=== PATIENT | female | born 1990 | race African-American/Black ===

== ENCOUNTER 2016-05-12 08:31 | Emergency (ER) | payer OTHER ==
[~2016-05-12] VITALS: Ht 157.5 cm; Wt 95.5 kg
[~2016-05-12 08:31] MED LIST: AMBIEN CR 12.12.5 MG PO; AMOXICILLIN 50500 MG PO; ATARAX 25MG25 MG/TAB PO; BACTRIM DS 8001 TAB PO; CEFTIN 250250 MG/TAB PO; CEPHALEXIN500 M1 PO; DESYREL 100MG100 MG PO; DESYREL 50MG50 MG PO; DOXYCYCLINE 10100 MG PO; EPI EZ PEN1 MG/ML IM; EPI-PEN1 MG/ML MR; FAM-PREN FORTE1 CAP PO; FLAGYL500 MG PO; FLEXERIL 1010 MG/TAB PO; FLOVENT DI100 MCG/Ac IH; IMPLANON68 MG ID; IRON TABLETS325 MG PO; KLONOPIN 0.5MG0.5 MG PO; LEXAPRO 10MG10 MG PO; LEXAPRO 5MG5 MG PO; LOESTRIN 1/20 21DAY PO; LORTAB 5/500 501 TAB PO; METRONIDAZOLE500 MG PO; NAPROSYN500 MG PO; NO HOME MEDICATIONS; NORCO 325 MG-51 TAB PO; NORCO 325 MG-7.1 TAB PO; PEPCID 20MG TAB20 MG PO; PERCOCET 325 MG1 TA2 PO; PHENERGAN 25 TA25 MG PO; PHENERGAN25 MG RC; PREDNISONE10 MG PO; PREDNISONE20 MG PO; PRILOSEC 20MG20 MG PO; PROMETHAZINE12.5 M5 PO; PROTONIX 40MG T40 MG PO; ULTRAM 50MG TAB50 MG PO; VENTOLIN0.09 MG IH; VICODIN 5/5001 UDTAB PO; WELLBUTRIN 75MG75 MG PO; WELLBUTRIN SR150 M1 PO; ZITHROMAX Z PA250 MG PO; ZOFRAN 4MG T4 MG/TAB PO; ZOFRAN ODT8 MG PO; ZOLOFT 100MG100 MG PO; ZYPREXA2.5 MG PO
[2016-05-12 08:33] VITALS: BP 122/64; PULSE 103; TEMP 98.5
[2016-05-12] MEDS ORDERED: SEROQUEL 2525 MG/TAB PO (08:36)
[2016-05-12] MEDS ORDERED: CELEXA40 MG PO (08:45)
[2016-05-12] MEDS ORDERED: ZITHROMAX Z PA250 MG PO (09:45)
== END 2016-05-12 10:01 | disposition home or self-care (01) ==
LOC: COL.ER 08:31
DX: J02.0 Streptococcal pharyngitis (principal)
CPT/HCPCS: J8540

== ENCOUNTER 2016-11-04 11:17 | Emergency (ER) | payer SELFPAY ==
[~2016-11-04] VITALS: Ht 157.5 cm; Wt 90.9 kg
[~2016-11-04 11:17] MED LIST changes: +CELEXA40 MG PO; +SEROQUEL 2525 MG/TAB PO
[2016-11-04 11:20] VITALS: BP 132/86; TEMP 99.6
[2016-11-04] MEDS ORDERED: AMITRIPTYLINE H25 M1 PO (11:23)
[2016-11-04] MEDS ORDERED: LATUDA40 MG PO (11:23)
[2016-11-04 12:22] LABS: PH 6 (5-8); SQUAMOUS EPITHELIAL None Seen /hpf; URINE APPEARANCE Clear; URINE BACTERIA None Seen /hpf; URINE BILIRUBIN Negative (NEGATIVE); URINE BLOOD Negative (NEGATIVE); URINE COLOR Yellow; URINE GLUCOSE Negative (NEGATIVE); URINE KETONE Trace (NEGATIVE); URINE RBC 0-2 /hpf; URINE UROBILINOGEN Negative (NEGATIVE); URINE WBC 0-2 /hpf
[2016-11-04 12:33] LABS: BASO # 0.1 (0.0-0.2); BASO % 0.8 % (0.0-2.0); EOS # 0.1 (0.0-0.7); EOS % 1.3 % (0-4.0); GRAN # 5.9 (1.4-6.5); GRAN % 65.7 % (42.2-75.2); LYMPH # 2.4 (1.2-3.4); LYMPH % 26.4 % (20.0-51.0); MEAN CELL VOLUME 84 fl (80.0-100.0); MEAN CORPUSCULAR HGB CONC 34 g/dl (33.0-37.0); MEAN PLATELET VOLUME 9.6 fl (7.4-10.4); MONO # 0.5 (0.1-0.6); MONO % 5.7 % (1.7-9.3); PLATELET COUNT 307 K/mm3 (130-400); RED BLOOD COUNT 4.24 M/mm3 (4.10-5.30); REDCELL DISTRIBUTION WIDTH-CV 12.6 % (11.5-14.5); WHITE BLOOD COUNT 9.1 K/mm3 (4.8-10.8)
[2016-11-04 12:35] LABS: HEMATOCRIT 35.5 % (37.0-47.0); HEMOGLOBIN 11.9 g/dl (12.5-16.0); MEAN CORPUSCULAR HEMOGLOBIN 28 pg (27.0-31.0)
[2016-11-04 12:48] LABS: ALBUMIN 4.7 gm/dL (3.5-5.0); BILIRUBIN,TOTAL 1.1 mg/dL (0.0-1.0); C-REACTIVE PROTEIN 2.1 mg/dL (0.0-0.9); CALCIUM 9.6 mg/dL (8.4-10.2); CREATININE, serum 0.73 mg/dL (0.52-1.25); POTASSIUM 3.4 mmol/L (3.4-5.0); TOTAL PROTEIN 8.7 gm/dL (6.4-8.2)
[2016-11-04 15:25] VITALS: PULSE 117
[2016-11-04 17:04] LABS: CHLAMYDIA/TRACH by PCR Female NOT DETECTED; NEISSERIA GON by PCR Female NOT DETECTED
== END 2016-11-04 15:26 | disposition home or self-care (01) ==
LOC: COL.ER 11:17
PROVIDERS: Emergency Medicine
DX: O26.899 Other specified pregnancy related conditions, unspecified trimester (principal); R10.30 Lower abdominal pain, unspecified; O99.340 Other mental disorders complicating pregnancy, unspecified trimester; F32.9 Major depressive disorder, single episode, unspecified; Z3A.00 Weeks of gestation of pregnancy not specified; Z87.42 Personal history of other diseases of the female genital tract
CPT/HCPCS: J7030

== ENCOUNTER → 2016-11-11 | Outpatient (CLI) | payer SELFPAY ==
[~2016-11-11] MED LIST changes: +AMITRIPTYLINE H25 M1 PO; +LATUDA40 MG PO
== END ==
LOC: COL.RAD 15:00
DX: O26.851 Spotting complicating pregnancy, first trimester (principal); Z3A.01 Less than 8 weeks gestation of pregnancy

== ENCOUNTER → 2016-11-18 | Outpatient (CLI) | payer MEDICAID | LOC: COL.RAD 10:20 | DX: O26.851 Spotting complicating pregnancy, first trimester (principal); Z3A.01 Less than 8 weeks gestation of pregnancy ==

== ENCOUNTER 2016-12-04 19:17 | Emergency (ER) | payer MEDICAID ==
[~2016-12-04] VITALS: Ht 157.5 cm; Wt 90.9 kg
[2016-12-04 19:22] VITALS: BP 111/51; TEMP 99.2
[2016-12-04 20:18] LABS: COLLECTION METHOD CLEAN CATCH
[2016-12-04 20:28] LABS: MUCOUS Present /lpf; PH 7 (5-8); SQUAMOUS EPITHELIAL 0-2 /hpf; URINE APPEARANCE Clear; URINE BACTERIA None Seen /hpf; URINE BILIRUBIN Negative (NEGATIVE); URINE BLOOD 1+ (NEGATIVE); URINE COLOR Yellow; URINE GLUCOSE Negative (NEGATIVE); URINE KETONE Negative (NEGATIVE); URINE LEUKOCYTE ESTERASE Negative (NEGATIVE); URINE PROTEIN(semi-quant) Negative (NEGATIVE); URINE RBC 0-2 /hpf; URINE UROBILINOGEN Negative (NEGATIVE); URINE WBC 0-2 /hpf
[2016-12-04 21:01] LABS: BASO % 0.5 % (0.0-2.0); EOS # 0.1 (0.0-0.7); EOS % 2.2 % (0-4.0); GRAN # 3.7 (1.4-6.5); GRAN % 62.2 % (42.2-75.2); HEMATOCRIT 33.3 % (37.0-47.0); HEMOGLOBIN 11.2 g/dl (12.5-16.0); LYMPH # 1.7 (1.2-3.4); LYMPH % 28.1 % (20.0-51.0); MEAN CELL VOLUME 85 fl (80.0-100.0); MEAN CORPUSCULAR HEMOGLOBIN 29 pg (27.0-31.0); MEAN CORPUSCULAR HGB CONC 34 g/dl (33.0-37.0); MEAN PLATELET VOLUME 9.2 fl (7.4-10.4); MONO # 0.4 (0.1-0.6); MONO % 6.8 % (1.7-9.3); PLATELET COUNT 244 K/mm3 (130-400); RED BLOOD COUNT 3.92 M/mm3 (4.10-5.30); WHITE BLOOD COUNT 5.9 K/mm3 (4.8-10.8)
[2016-12-04 21:22] LABS: ADJUSTED CALCIUM 8.8 mg/dL (8.4-10.2); ALBUMIN 3.9 gm/dL (3.5-5.0); BILIRUBIN,TOTAL 0.4 mg/dL (0.0-1.0); CALCIUM 8.7 mg/dL (8.4-10.2); CREATININE, serum 0.64 mg/dL (0.52-1.25); POTASSIUM 3.4 mmol/L (3.4-5.0); TOTAL PROTEIN 7.7 gm/dL (6.4-8.2)
[2016-12-04] MEDS ORDERED: FLAGYL500 MG PO (22:05)
[2016-12-04 22:24] VITALS: PULSE 105
[2016-12-04 23:38] LABS: CHLAMYDIA/TRACH by PCR Female NOT DETECTED; NEISSERIA GON by PCR Female NOT DETECTED
== END 2016-12-04 22:28 | disposition home or self-care (01) ==
LOC: COL.ER 19:17
PROVIDERS: Emergency Medicine; Nurse Practitioner
DX: O26.891 Other specified pregnancy related conditions, first trimester (principal); N76.0 Acute vaginitis; F31.9 Bipolar disorder, unspecified; J45.909 Unspecified asthma, uncomplicated; F41.9 Anxiety disorder, unspecified; B96.89 Other specified bacterial agents as the cause of diseases classified elsewhere; Z3A.09 9 weeks gestation of pregnancy
CPT/HCPCS: J1200; J2550; J7030

== ENCOUNTER 2017-02-05 14:37 | Emergency (ER) | payer MEDICAID ==
[~2017-02-05] VITALS: Ht 157.5 cm; Wt 86.4 kg
[2017-02-05 14:41] VITALS: TEMP 98.1
[2017-02-05] MEDS ORDERED: AMBIEN 5MG TABLE5 MG PO (14:54)
[2017-02-05] MEDS ORDERED: CELEXA40 MG PO (14:54)
[2017-02-05] MEDS ORDERED: ZOFRAN8 MG PO (14:54)
[2017-02-05 15:56] LABS: COLLECTION METHOD CLEAN CATCH
[2017-02-05 16:03] LABS: AMORPHOUS CRYSTAL Present /uL; MUCOUS Present /lpf; PH 8 (5-8); SQUAMOUS EPITHELIAL 0-2 /hpf; URINE APPEARANCE Cloudy; URINE BACTERIA Rare /hpf; URINE BILIRUBIN Negative (NEGATIVE); URINE BLOOD Negative (NEGATIVE); URINE COLOR Yellow; URINE GLUCOSE Negative (NEGATIVE); URINE KETONE Negative (NEGATIVE); URINE LEUKOCYTE ESTERASE Negative (NEGATIVE); URINE PROTEIN(semi-quant) Negative (NEGATIVE); URINE RBC 0-2 /hpf; URINE UROBILINOGEN Negative (NEGATIVE); URINE WBC None Seen /hpf
[2017-02-05 16:51] VITALS: BP 119/77; PULSE 89
== END 2017-02-05 16:52 | disposition home or self-care (01) ==
LOC: COL.ER 14:37
PROVIDERS: Family Medicine
DX: O9A.212 Injury, poisoning and certain other consequences of external causes complicating pregnancy, second trimester (principal); S20.222A Contusion of left back wall of thorax, initial encounter; Z3A.18 18 weeks gestation of pregnancy; W10.9XXA Fall (on) (from) unspecified stairs and steps, initial encounter

== ENCOUNTER 2017-02-13 20:59 | Emergency (ER) | payer MEDICAID ==
[~2017-02-13] VITALS: Ht 157.5 cm; Wt 90.9 kg
[~2017-02-13 20:59] MED LIST changes: +AMBIEN 5MG TABLE5 MG PO; +ZOFRAN8 MG PO
[2017-02-13 21:02] VITALS: TEMP 98.3
[2017-02-13 21:36] LABS: COLLECTION METHOD CLEAN CATCH
[2017-02-13 21:38] LABS: BASO % 0.4 % (0.0-2.0); EOS # 0.1 (0.0-0.7); EOS % 1.1 % (0-4.0); GRAN # 8.2 (1.4-6.5); GRAN % 72.7 % (42.2-75.2); LYMPH # 2.5 (1.2-3.4); LYMPH % 21.9 % (20.0-51.0); MEAN CELL VOLUME 84 fl (80.0-100.0); MEAN CORPUSCULAR HGB CONC 35 g/dl (33.0-37.0); MEAN PLATELET VOLUME 9.4 fl (7.4-10.4); MONO # 0.4 (0.1-0.6); MONO % 3.5 % (1.7-9.3); PLATELET COUNT 278 K/mm3 (130-400); RED BLOOD COUNT 3.84 M/mm3 (4.10-5.30)
[2017-02-13 21:39] LABS: HEMATOCRIT 32.1 % (37.0-47.0); HEMOGLOBIN 11.1 g/dl (12.5-16.0); MEAN CORPUSCULAR HEMOGLOBIN 29 pg (27.0-31.0)
[2017-02-13 21:43] LABS: MUCOUS Present /lpf; PH 5 (5-8); SQUAMOUS EPITHELIAL 0-2 /hpf; URINE APPEARANCE Hazy; URINE BACTERIA Rare /hpf; URINE BILIRUBIN Negative (NEGATIVE); URINE BLOOD Negative (NEGATIVE); URINE COLOR Yellow; URINE GLUCOSE Negative (NEGATIVE); URINE KETONE 2+ (NEGATIVE); URINE LEUKOCYTE ESTERASE Negative (NEGATIVE); URINE NITRATE Negative (NEGATIVE); URINE PROTEIN(semi-quant) 1+ (NEGATIVE); URINE RBC 0-2 /hpf; URINE UROBILINOGEN Negative (NEGATIVE)
[2017-02-13 21:47] LABS: ALBUMIN 4.1 gm/dL (3.5-5.0); BILIRUBIN,TOTAL 0.4 mg/dL (0.0-1.0); CALCIUM 9.5 mg/dL (8.4-10.2); CREATININE, serum 0.53 mg/dL (0.52-1.25); POTASSIUM 3.4 mmol/L (3.4-5.0); TOTAL PROTEIN 7.7 gm/dL (6.4-8.2)
[2017-02-13 22:58] VITALS: BP 109/77; PULSE 95
== END 2017-02-13 22:58 | disposition home or self-care (01) ==
LOC: COL.ER 20:59
PROVIDERS: Physician Assistant
DX: O21.9 Vomiting of pregnancy, unspecified (principal); O99.342 Other mental disorders complicating pregnancy, second trimester; F31.9 Bipolar disorder, unspecified; F41.9 Anxiety disorder, unspecified; Z3A.19 19 weeks gestation of pregnancy; Z87.42 Personal history of other diseases of the female genital tract
CPT/HCPCS: J2405; J2765; J7030

== ENCOUNTER 2017-04-11 19:35 | Outpatient (CLI) | payer MEDICAID ==
[~2017-04-11] VITALS: Ht 160 cm; Wt 93.6 kg
[2017-04-11 20:30] VITALS: BP 114/70; PULSE 113; TEMP 98
[2017-04-11 21:00] VITALS: BP 102/57; BP 114/70; PULSE 108; PULSE 113; TEMP 98
[2017-04-11] MEDS ORDERED: BENADRYL50 MG PO (21:04)
[2017-04-11 21:19] LABS: COLLECTION METHOD CLEAN CATCH
[2017-04-11 21:26] LABS: MUCOUS Present /lpf; PH 5 (5-8); SQUAMOUS EPITHELIAL 0-2 /hpf; URINE APPEARANCE Hazy; URINE BACTERIA Rare /hpf; URINE BILIRUBIN Negative (NEGATIVE); URINE BLOOD Negative (NEGATIVE); URINE COLOR Yellow; URINE GLUCOSE Negative (NEGATIVE); URINE KETONE Trace (NEGATIVE); URINE LEUKOCYTE ESTERASE Negative (NEGATIVE); URINE NITRATE Negative (NEGATIVE); URINE PROTEIN(semi-quant) 1+ (NEGATIVE); URINE RBC 0-2 /hpf; URINE WBC 0-2 /hpf
[2017-04-11 21:30] VITALS: BP 91/52; PULSE 109
[2017-04-11 22:06] VITALS: BP 102/63; PULSE 110
== END 2017-04-11 22:20 | disposition home or self-care (01) ==
LOC: LDRO 19:35
PROVIDERS: Obstetrics & Gynecology
DX: O62.9 Abnormality of forces of labor, unspecified (principal); Z3A.27 27 weeks gestation of pregnancy

== ENCOUNTER → 2017-04-28 | Outpatient (CLI) | payer MEDICAID ==
[~2017-04-28] MED LIST changes: +BENADRYL50 MG PO
== END ==
LOC: SUN.DIA 13:47
DX: O24.419 Gestational diabetes mellitus in pregnancy, unspecified control (principal); Z3A.30 30 weeks gestation of pregnancy; Z71.3 Dietary counseling and surveillance
CPT/HCPCS: G0108

== ENCOUNTER → 2017-05-06 | Outpatient (CLI) | payer MEDICAID | LOC: SUN.DIA 15:33 | DX: O24.419 Gestational diabetes mellitus in pregnancy, unspecified control (principal); Z3A.31 31 weeks gestation of pregnancy; Z71.3 Dietary counseling and surveillance | CPT/HCPCS: G0108 ==

== ENCOUNTER 2017-05-13 15:42 | Emergency (ER) | payer MEDICAID ==
[~2017-05-13] VITALS: Ht 157.5 cm; Wt 98.9 kg
[2017-05-13] MEDS ORDERED: NATURAL IRON65 MG PO (15:45)
[2017-05-13 15:48] VITALS: BP 121/64; TEMP 97.7
[2017-05-13 16:11] LABS: BASO % 0.2 % (0.0-2.0); EOS # 0.1 (0.0-0.7); EOS % 1.7 % (0-4.0); GRAN # 5.7 (1.4-6.5); GRAN % 67.5 % (42.2-75.2); LYMPH # 2.1 (1.2-3.4); LYMPH % 24.9 % (20.0-51.0); MEAN CELL VOLUME 82 fl (80.0-100.0); MEAN CORPUSCULAR HGB CONC 33 g/dl (33.0-37.0); MEAN PLATELET VOLUME 9.5 fl (7.4-10.4); MONO # 0.5 (0.1-0.6); MONO % 5.5 % (1.7-9.3); PLATELET COUNT 251 K/mm3 (130-400); REDCELL DISTRIBUTION WIDTH-CV 13.6 % (11.5-14.5)
[2017-05-13 16:13] LABS: HEMATOCRIT 28.8 % (37.0-47.0); HEMOGLOBIN 9.5 g/dl (12.5-16.0); MEAN CORPUSCULAR HEMOGLOBIN 27 pg (27.0-31.0)
[2017-05-13 16:40] LABS: ALANINE AMINOTRANSFERASE 24 U/L (9-52); ALBUMIN 3.3 gm/dL (3.5-5.0); ALKALINE PHOSPHATASE 115 U/L (50-136); ANION GAP 12 mmol/L (7-16); AST,SGOT 18 U/L (15-37); BILIRUBIN,TOTAL < 0.1 mg/dL (0.0-1.0); BLOOD UREA NITROGEN 8 mg/dL (7-17); CALCIUM 9.3 mg/dL (8.4-10.2); CARBON DIOXIDE 20 mmol/L (22-30); CHLORIDE 105 mmol/L (98-107); CREATININE, serum 0.51 mg/dL (0.52-1.25); GLUCOSE 98 mg/dL (74-106); POTASSIUM 3.8 mmol/L (3.4-5.0); SODIUM 138 mmol/L (137-145); TOTAL PROTEIN 7.4 gm/dL (6.4-8.2)
[2017-05-13 17:11] LABS: COLLECTION METHOD CLEAN CATCH
[2017-05-13 17:21] LABS: MUCOUS Present /lpf; PH 6 (5-8); URINE APPEARANCE Clear; URINE BACTERIA Rare /hpf; URINE BILIRUBIN Negative (NEGATIVE); URINE BLOOD Negative (NEGATIVE); URINE COLOR Yellow; URINE GLUCOSE Negative (NEGATIVE); URINE KETONE Negative (NEGATIVE); URINE LEUKOCYTE ESTERASE Negative (NEGATIVE); URINE NITRATE Negative (NEGATIVE); URINE PROTEIN(semi-quant) 1+ (NEGATIVE); URINE RBC 0-2 /hpf; URINE UROBILINOGEN Negative (NEGATIVE)
[2017-05-13 17:36] VITALS: PULSE 90
== END 2017-05-13 17:36 | disposition home or self-care (01) ==
LOC: COL.ER 15:42
PROVIDERS: Physician Assistant
DX: O99.89 Other specified diseases and conditions complicating pregnancy, childbirth and the puerperium (principal); R55 Syncope and collapse; O99.013 Anemia complicating pregnancy, third trimester; O99.513 Diseases of the respiratory system complicating pregnancy, third trimester; J45.909 Unspecified asthma, uncomplicated; Z3A.32 32 weeks gestation of pregnancy

== ENCOUNTER → 2017-05-14 | Outpatient (CLI) | payer MEDICAID ==
[~2017-05-14] MED LIST changes: +LEVEMIR SQ; +NATURAL IRON65 MG PO
== END ==
LOC: SUN.DIA 10:16
DX: O24.419 Gestational diabetes mellitus in pregnancy, unspecified control (principal); Z3A.32 32 weeks gestation of pregnancy; Z71.3 Dietary counseling and surveillance
CPT/HCPCS: G0108

== ENCOUNTER 2017-05-18 20:43 | Outpatient (CLI) | payer MEDICAID ==
[~2017-05-18] VITALS: Ht 157.5 cm; Wt 99.1 kg
[~2017-05-18 20:43] MED LIST changes: -LEVEMIR SQ
[2017-05-18 21:27] VITALS: BP 118/70; PULSE 121; TEMP 98.3
[2017-05-18 21:30] VITALS: BP 117/71; PULSE 91
[2017-05-18] MEDS ORDERED: LEVEMIR SQ (22:23)
== END 2017-05-18 22:30 | disposition home or self-care (01) ==
LOC: LDRO 20:43
DX: O62.9 Abnormality of forces of labor, unspecified (principal); Z3A.32 32 weeks gestation of pregnancy

== ENCOUNTER → 2017-05-28 | Outpatient (CLI) | payer MEDICAID ==
[~2017-05-28] MED LIST changes: +LEVEMIR SQ
== END ==
LOC: SUN.DIA 14:26
DX: O24.419 Gestational diabetes mellitus in pregnancy, unspecified control (principal); Z3A.34 34 weeks gestation of pregnancy; Z71.3 Dietary counseling and surveillance
CPT/HCPCS: G0108

== ENCOUNTER 2017-05-31 21:05 | Emergency (ER) | payer MEDICAID ==
[~2017-05-31] VITALS: Ht 157.5 cm; Wt 100.0 kg
[2017-05-31 21:08] VITALS: TEMP 97.7
[2017-05-31 21:15] VITALS: BP 127/66
[2017-05-31 22:01] LABS: COLLECTION METHOD CLEAN CATCH
[2017-05-31 22:06] LABS: BASO % 0.4 % (0.0-2.0); EOS # 0.1 (0.0-0.7); EOS % 1.8 % (0-4.0); GRAN # 5.1 (1.4-6.5); GRAN % 64.1 % (42.2-75.2); LYMPH # 2.2 (1.2-3.4); LYMPH % 27.8 % (20.0-51.0); MEAN CELL VOLUME 78 fl (80.0-100.0); MEAN CORPUSCULAR HGB CONC 34 g/dl (33.0-37.0); MEAN PLATELET VOLUME 9.7 fl (7.4-10.4); MONO # 0.4 (0.1-0.6); MONO % 5.6 % (1.7-9.3); PLATELET COUNT 257 K/mm3 (130-400); REDCELL DISTRIBUTION WIDTH-CV 13.4 % (11.5-14.5)
[2017-05-31 22:08] LABS: HEMOGLOBIN 9.5 g/dl (12.5-16.0); MEAN CORPUSCULAR HEMOGLOBIN 26 pg (27.0-31.0); MUCOUS Present /lpf; PH 7 (5-8); SQUAMOUS EPITHELIAL 0-2 /hpf; URINE APPEARANCE Clear; URINE BACTERIA Rare /hpf; URINE BILIRUBIN Negative (NEGATIVE); URINE BLOOD Negative (NEGATIVE); URINE COLOR Yellow; URINE GLUCOSE Negative (NEGATIVE); URINE KETONE Negative (NEGATIVE); URINE LEUKOCYTE ESTERASE Negative (NEGATIVE); URINE NITRATE Negative (NEGATIVE); URINE PROTEIN(semi-quant) Negative (NEGATIVE); URINE RBC 0-2 /hpf
[2017-05-31 22:17] LABS: ALBUMIN 3.3 gm/dL (3.5-5.0); BILIRUBIN,TOTAL 0.3 mg/dL (0.0-1.0); C-REACTIVE PROTEIN 1.6 mg/dL (0.0-0.9); CALCIUM 8.7 mg/dL (8.4-10.2); CREATININE, serum 0.5 mg/dL (0.52-1.25); POTASSIUM 3.5 mmol/L (3.4-5.0); TOTAL PROTEIN 7.2 gm/dL (6.4-8.2)
[2017-05-31 23:33] VITALS: PULSE 102
== END 2017-05-31 23:32 | disposition home or self-care (01) ==
LOC: COL.ER 21:05
PROVIDERS: Emergency Medicine
DX: O26.893 Other specified pregnancy related conditions, third trimester (principal); O24.419 Gestational diabetes mellitus in pregnancy, unspecified control; R10.11 Right upper quadrant pain; J45.909 Unspecified asthma, uncomplicated; Z3A.34 34 weeks gestation of pregnancy; Z98.890 Other specified postprocedural states; Z79.4 Long term (current) use of insulin
CPT/HCPCS: J2765; J3010; J7050

== ENCOUNTER → 2017-06-10 | Outpatient (CLI) | payer MEDICAID ==
[~2017-06-10] MED LIST changes: +AMBIEN 10MG10 MG PO; +LEVEMIR100 U/ML SQ
== END ==
LOC: SUN.DIA 11:42
DX: O24.419 Gestational diabetes mellitus in pregnancy, unspecified control (principal); Z3A.36 36 weeks gestation of pregnancy; Z71.3 Dietary counseling and surveillance
CPT/HCPCS: G0108

== ENCOUNTER 2017-06-11 13:40 | Outpatient (CLI) | payer MEDICAID ==
[~2017-06-11] VITALS: Ht 157.5 cm; Wt 100.0 kg
[~2017-06-11 13:40] MED LIST changes: -AMBIEN 10MG10 MG PO; -LEVEMIR100 U/ML SQ
[2017-06-11 13:50] VITALS: BP 125/70; PULSE 116; TEMP 98.1
[2017-06-11] MEDS ORDERED: CELEXA40 MG PO (13:57)
[2017-06-11] MEDS ORDERED: AMBIEN 10MG10 MG PO (13:58)
[2017-06-11] MEDS ORDERED: LEVEMIR100 U/ML SQ (14:00)
[2017-06-11 14:08] VITALS: BP 125/70; PULSE 116; TEMP 98.1
== END 2017-06-11 14:15 | disposition home or self-care (01) ==
LOC: LDRO 13:40
DX: O36.8130 Decreased fetal movements, third trimester, not applicable or unspecified (principal); Z3A.35 35 weeks gestation of pregnancy

== ENCOUNTER → 2017-06-15 | Outpatient (CLI) | payer MEDICAID ==
[~2017-06-15] VITALS: Ht 160 cm; Wt 99.5 kg
[~2017-06-15] MED LIST changes: +AMBIEN 10MG10 MG PO; +LEVEMIR100 U/ML SQ
[2017-06-15 18:34] VITALS: BP 120/67; PULSE 101; TEMP 98.4
[2017-06-15 19:00] VITALS: BP 121/64; PULSE 95
[2017-06-15 19:30] VITALS: BP 118/65; PULSE 93
[2017-06-15 21:20] VITALS: BP 112/80; PULSE 117; TEMP 98.8
== END ==
LOC: LDRO 18:06
DX: O99.89 Other specified diseases and conditions complicating pregnancy, childbirth and the puerperium (principal); M79.662 Pain in left lower leg; Z3A.36 36 weeks gestation of pregnancy

== ENCOUNTER 2017-06-22 21:11 | Outpatient (CLI) | payer MEDICAID ==
[~2017-06-22] VITALS: Ht 157.5 cm; Wt 99.1 kg
[2017-06-22 21:18] VITALS: BP 118/70; PULSE 96; TEMP 98.2
[2017-06-22] MEDS ORDERED: CALCIUM CARBON650 M2 PO (21:26)
[2017-06-22 22:54] VITALS: BP 111/62; PULSE 109
== END 2017-06-22 23:00 | disposition home or self-care (01) ==
LOC: LDRO 21:11
DX: O62.9 Abnormality of forces of labor, unspecified (principal); Z3A.37 37 weeks gestation of pregnancy

== ENCOUNTER 2017-07-04 06:39 | Inpatient (IN) | payer MEDICAID ==
[~2017-07-04] VITALS: Ht 157.5 cm; Wt 102.3 kg
[2017-07-04] VITALS (49 sets, daily range): BP systolic 100–139; BP diastolic 49–93; PULSE 70–120; TEMP 97.8–98.1
[~2017-07-04 06:39] MED LIST changes: -MOTRIN 800800 MG/TAB PO
[2017-07-04 07:57] LABS: BASO % 0.4 % (0.0-2.0); EOS # 0.1 (0.0-0.7); EOS % 1.2 % (0-4.0); GRAN % 63.9 % (42.2-75.2); LYMPH # 2.7 (1.2-3.4); LYMPH % 28.2 % (20.0-51.0); MEAN CELL VOLUME 75 fl (80.0-100.0); MEAN CORPUSCULAR HGB CONC 32 g/dl (33.0-37.0); MEAN PLATELET VOLUME 10.4 fl (7.4-10.4); MONO # 0.6 (0.1-0.6); MONO % 5.9 % (1.7-9.3); PLATELET COUNT 303 K/mm3 (130-400); RED BLOOD COUNT 4.06 M/mm3 (4.10-5.30)
[2017-07-04 07:58] LABS: HEMATOCRIT 30.6 % (37.0-47.0); HEMOGLOBIN 9.8 g/dl (12.5-16.0); MEAN CORPUSCULAR HEMOGLOBIN 24 pg (27.0-31.0)
[2017-07-05 07:30] VITALS: BP 111/68; PULSE 68; TEMP 97.7
[2017-07-05] MEDS ORDERED: PERCOCET 325 MG1 TA2 PO (08:43)
[2017-07-05] MEDS ORDERED: MOTRIN 800800 MG/TAB PO (08:43)
[2017-07-05 12:30] VITALS: BP 129/78; PULSE 67; TEMP 97.6
[2017-07-05 16:50] VITALS: BP 123/66; PULSE 97; TEMP 97.3
[2017-07-05 19:50] VITALS: BP 126/72; PULSE 84; TEMP 97.8
[2017-07-06 08:00] VITALS: BP 120/68; PULSE 78; TEMP 97.9
[2017-07-06] MEDS ORDERED: PERCOCET 325 MG1 TA2 PO (11:08)
[2017-07-06 19:50] VITALS: BP 133/79; PULSE 94; TEMP 98.2
[2017-07-07 08:15] VITALS: BP 144/80; PULSE 93; TEMP 98.5
[2017-07-07 16:10] VITALS: BP 144/83; PULSE 87; TEMP 97.9
[2017-07-07 18:15] VITALS: BP 140/90; PULSE 83
[2017-07-07 19:45] VITALS: BP 132/77; PULSE 88; TEMP 98.2
[2017-07-08 07:39] VITALS: BP 132/84; PULSE 86; TEMP 98.1
[2017-07-08 16:27] VITALS: BP 114/56; PULSE 76; TEMP 98.1
[2017-07-08] MEDS ORDERED: DULCOLAX STOOL100 MG PO (18:45)
== END 2017-07-08 16:32 | disposition home or self-care (01) | DRG 766 ==
LOC: LDR 06:39 → OB 07:00
PROVIDERS: Obstetrics & Gynecology
PROC: 10D00Z1 Extraction of Products of Conception, Low, Open Approach (ICD-10-PCS; principal; 2017-07-04)
PROC: 3E033VJ Introduction of Other Hormone into Peripheral Vein, Percutaneous Approach (ICD-10-PCS; 2017-07-04)
PROC: 10907ZC Drainage of Amniotic Fluid, Therapeutic from Products of Conception, Via Natural or Artificial Opening (ICD-10-PCS; 2017-07-04)
DX: O76 Abnormality in fetal heart rate and rhythm complicating labor and delivery (principal); Z3A.39 39 weeks gestation of pregnancy; Z37.0 Single live birth; O24.424 Gestational diabetes mellitus in childbirth, insulin controlled; O99.02 Anemia complicating childbirth; F31.9 Bipolar disorder, unspecified; O99.344 Other mental disorders complicating childbirth
CPT/HCPCS: J0690; J1170; J1200; J1885; J2270; J2370; J2405; J2590; J2704; J2795; J3010; J7120

== ENCOUNTER → 2017-07-04 | Outpatient (CLI) | payer MEDICAID ==
[~2017-07-04] MED LIST changes: +CALCIUM CARBON650 M2 PO; +MOTRIN 800800 MG/TAB PO
== END ==
LOC: LDRO 06:55
DX: Z01.89 Encounter for other specified special examinations (principal)

== ENCOUNTER 2017-07-08 17:50 | Emergency (ER) | payer MEDICAID ==
[~2017-07-08] VITALS: Ht 157.5 cm; Wt 101.4 kg
[~2017-07-08 17:50] MED LIST changes: +MOTRIN 800800 MG/TAB PO
[2017-07-08 17:54] VITALS: TEMP 97.5
[2017-07-08 18:22] LABS: BASO % 0.3 % (0.0-2.0); EOS # 0.4 (0.0-0.7); EOS % 5.5 % (0-4.0); GRAN # 3.6 (1.4-6.5); GRAN % 56.1 % (42.2-75.2); LYMPH # 2.1 (1.2-3.4); LYMPH % 32.6 % (20.0-51.0); MEAN CELL VOLUME 76 fl (80.0-100.0); MEAN CORPUSCULAR HGB CONC 32 g/dl (33.0-37.0); MEAN PLATELET VOLUME 9.6 fl (7.4-10.4); MONO # 0.3 (0.1-0.6); MONO % 5.3 % (1.7-9.3); PLATELET COUNT 287 K/mm3 (130-400); RED BLOOD COUNT 3.17 M/mm3 (4.10-5.30); REDCELL DISTRIBUTION WIDTH-CV 14.6 % (11.5-14.5)
[2017-07-08 18:23] LABS: HEMATOCRIT 24.1 % (37.0-47.0); HEMOGLOBIN 7.7 g/dl (12.5-16.0); MEAN CORPUSCULAR HEMOGLOBIN 24 pg (27.0-31.0)
[2017-07-08 18:33] LABS: INR 0.9 (0.8-3.0); PROTHROMBIN TIME 10.3 SECONDS (9.7-12.8)
[2017-07-08 18:39] LABS: ALANINE AMINOTRANSFERASE 42 U/L (9-52); ALKALINE PHOSPHATASE 126 U/L (50-136); ANION GAP 10 mmol/L (7-16); AST,SGOT 41 U/L (15-37); BILIRUBIN,TOTAL 0.4 mg/dL (0.0-1.0); BLOOD UREA NITROGEN 10 mg/dL (7-17); CALCIUM 8.6 mg/dL (8.4-10.2); CARBON DIOXIDE 23 mmol/L (22-30); CHLORIDE 104 mmol/L (98-107); GLUCOSE 72 mg/dL (74-106); POTASSIUM 3.8 mmol/L (3.4-5.0); SODIUM 137 mmol/L (137-145); TOTAL PROTEIN 6.6 gm/dL (6.4-8.2)
[2017-07-08] MEDS ORDERED: DULCOLAX STOOL100 MG PO (18:45)
[2017-07-08 18:50] LABS: TROPONIN-I < 0.012 ng/mL (0.000-0.034)
[2017-07-08 20:00] VITALS: BP 147/95; PULSE 86
== END 2017-07-08 20:26 | disposition home or self-care (01) ==
LOC: COL.ER 17:50
PROVIDERS: Emergency Medicine
DX: R06.00 Dyspnea, unspecified (principal); Z98.890 Other specified postprocedural states
CPT/HCPCS: Q9967

== ENCOUNTER 2018-02-21 11:48 | Emergency (ER) | payer MEDICAID ==
[~2018-02-21] VITALS: Ht 157.5 cm; Wt 97.7 kg
[~2018-02-21 11:48] MED LIST changes: +DULCOLAX STOOL100 MG PO
[2018-02-21 12:05] VITALS: BP 130/82; TEMP 98.6
[2018-02-21 12:09] LABS: COLLECTION METHOD CLEAN CATCH
[2018-02-21 12:19] LABS: MUCOUS Present /lpf; PH 5 (5-8); URINE APPEARANCE Hazy; URINE BACTERIA Rare /hpf; URINE BILIRUBIN Negative (NEGATIVE); URINE BLOOD Negative (NEGATIVE); URINE COLOR Yellow; URINE GLUCOSE Negative (NEGATIVE); URINE KETONE Negative (NEGATIVE); URINE LEUKOCYTE ESTERASE Negative (NEGATIVE); URINE NITRATE Negative (NEGATIVE); URINE PROTEIN(semi-quant) Negative (NEGATIVE); URINE RBC 0-2 /hpf; URINE UROBILINOGEN Negative (NEGATIVE)
[2018-02-21 13:02] LABS: BASO % 0.3 % (0.0-2.0); EOS # 0.2 (0.0-0.7); EOS % 2.1 % (0-4.0); GRAN # 6.2 (1.4-6.5); GRAN % 78.2 % (42.2-75.2); HEMOGLOBIN 11.8 g/dl (12.5-16.0); LYMPH # 1.2 (1.2-3.4); LYMPH % 14.8 % (20.0-51.0); MEAN CELL VOLUME 83 fl (80.0-100.0); MEAN CORPUSCULAR HEMOGLOBIN 27 pg (27.0-31.0); MEAN CORPUSCULAR HGB CONC 32 g/dl (33.0-37.0); MEAN PLATELET VOLUME 9.9 fl (7.4-10.4); MONO # 0.3 (0.1-0.6); MONO % 4.3 % (1.7-9.3); PLATELET COUNT 321 K/mm3 (130-400); RED BLOOD COUNT 4.39 M/mm3 (4.10-5.30)
[2018-02-21 13:06] LABS: HEMATOCRIT 36.6 % (37.0-47.0)
[2018-02-21 13:07] LABS: ALBUMIN 4.2 gm/dL (3.5-5.0); BILIRUBIN,TOTAL 0.5 mg/dL (0.0-1.0); CALCIUM 8.8 mg/dL (8.4-10.2); CREATININE, serum 0.77 mg/dL (0.52-1.25); TOTAL PROTEIN 8.1 gm/dL (6.4-8.2)
[2018-02-21] MEDS ORDERED: PHENERGAN 25 TA25 MG PO (14:49)
[2018-02-21 14:59] VITALS: PULSE 102
== END 2018-02-21 15:01 | disposition home or self-care (01) ==
LOC: COL.ER 11:48
PROVIDERS: Emergency Medicine
DX: R11.2 Nausea with vomiting, unspecified (principal); R10.9 Unspecified abdominal pain; F31.9 Bipolar disorder, unspecified; Z98.890 Other specified postprocedural states
CPT/HCPCS: J2270; J2405; J2550; J7030; Q9967

== ENCOUNTER 2018-03-23 00:12 | Emergency (ER) | payer MEDICAID ==
[~2018-03-23] VITALS: Ht 157.5 cm; Wt 95.5 kg
[2018-03-23 00:28] VITALS: TEMP 98.3
[2018-03-23 00:41] LABS: BASO # 0.1 (0.0-0.2); BASO % 0.6 % (0.0-2.0); EOS # 0.2 (0.0-0.7); EOS % 1.8 % (0-4.0); GRAN # 4.5 (1.4-6.5); GRAN % 54.8 % (42.2-75.2); HEMOGLOBIN 11.4 g/dl (12.5-16.0); LYMPH # 3.1 (1.2-3.4); LYMPH % 37.3 % (20.0-51.0); MEAN CELL VOLUME 82 fl (80.0-100.0); MEAN CORPUSCULAR HEMOGLOBIN 27 pg (27.0-31.0); MEAN CORPUSCULAR HGB CONC 33 g/dl (33.0-37.0); MEAN PLATELET VOLUME 9.7 fl (7.4-10.4); MONO # 0.4 (0.1-0.6); MONO % 5.3 % (1.7-9.3); PLATELET COUNT 316 K/mm3 (130-400); RED BLOOD COUNT 4.26 M/mm3 (4.10-5.30)
[2018-03-23 00:47] LABS: PROTHROMBIN TIME 11.4 SECONDS (9.7-12.8)
[2018-03-23 00:52] LABS: ALANINE AMINOTRANSFERASE 15 U/L (9-52); ALKALINE PHOSPHATASE 76 U/L (50-136); ANION GAP 9 mmol/L (7-16); AST,SGOT 19 U/L (15-37); BILIRUBIN,TOTAL 0.3 mg/dL (0.0-1.0); BLOOD UREA NITROGEN 11 mg/dL (7-17); CALCIUM 9.2 mg/dL (8.4-10.2); CARBON DIOXIDE 25 mmol/L (22-30); CHLORIDE 104 mmol/L (98-107); CREATININE, serum 0.79 mg/dL (0.52-1.25); GLUCOSE 102 mg/dL (74-106); POTASSIUM 3.3 mmol/L (3.4-5.0); SODIUM 139 mmol/L (137-145); TOTAL PROTEIN 7.8 gm/dL (6.4-8.2)
[2018-03-23 00:56] LABS: HEMATOCRIT 34.9 % (37.0-47.0)
[2018-03-23 01:03] LABS: TROPONIN-I < 0.012 ng/mL (0.000-0.035)
[2018-03-23 04:16] VITALS: BP 120/63; PULSE 99
== END 2018-03-23 04:24 | disposition home or self-care (01) ==
LOC: COL.ER 00:12
PROVIDERS: Emergency Medicine
DX: F41.9 Anxiety disorder, unspecified (principal); I10 Essential (primary) hypertension; K21.9 Gastro-esophageal reflux disease without esophagitis; J45.909 Unspecified asthma, uncomplicated; G47.00 Insomnia, unspecified; Z79.1 Long term (current) use of non-steroidal anti-inflammatories (NSAID); Z79.899 Other long term (current) drug therapy
CPT/HCPCS: J2060; J7030; Q9967

== ENCOUNTER 2018-05-18 17:16 | Emergency (ER) | payer MEDICAID ==
[~2018-05-18] VITALS: Ht 157.5 cm; Wt 97.1 kg
[2018-05-18 17:37] VITALS: TEMP 97.2
[2018-05-18 18:06] LABS: BASO # 0.1 (0.0-0.2); BASO % 0.7 % (0.0-2.0); EOS # 0.2 (0.0-0.7); GRAN # 6.4 (1.4-6.5); GRAN % 69.8 % (42.2-75.2); HEMATOCRIT 37.1 % (37.0-47.0); HEMOGLOBIN 12.1 g/dl (12.5-16.0); LYMPH # 2.1 (1.2-3.4); LYMPH % 23.1 % (20.0-51.0); MEAN CELL VOLUME 83 fl (80.0-100.0); MEAN CORPUSCULAR HEMOGLOBIN 27 pg (27.0-31.0); MEAN CORPUSCULAR HGB CONC 33 g/dl (33.0-37.0); MEAN PLATELET VOLUME 9.9 fl (7.4-10.4); MONO # 0.4 (0.1-0.6); MONO % 4.2 % (1.7-9.3); PLATELET COUNT 309 K/mm3 (130-400); RED BLOOD COUNT 4.46 M/mm3 (4.10-5.30); REDCELL DISTRIBUTION WIDTH-CV 13.8 % (11.5-14.5)
[2018-05-18] MEDS ORDERED: MINIPRESS 5M5 MG/CAP PO (18:19)
[2018-05-18] MEDS ORDERED: AMBIEN 10MG10 MG PO (18:19)
[2018-05-18] MEDS ORDERED: SPRINTEC 35 MCG1 TAB PO (18:19)
[2018-05-18 18:20] LABS: ALANINE AMINOTRANSFERASE < 6 U/L (9-52); ALBUMIN 4.5 gm/dL (3.5-5.0); ALKALINE PHOSPHATASE 76 U/L (50-136); ANION GAP 9 mmol/L (7-16); AST,SGOT 23 U/L (15-37); BILIRUBIN,TOTAL 0.4 mg/dL (0.0-1.0); BLOOD UREA NITROGEN 12 mg/dL (7-17); C-REACTIVE PROTEIN 1.7 mg/dL (0.0-0.9); CALCIUM 9.8 mg/dL (8.4-10.2); CARBON DIOXIDE 26 mmol/L (22-30); CHLORIDE 104 mmol/L (98-107); CREATININE, serum 1.08 (0.52-1.25); GLUCOSE 97 mg/dL (74-106); LIPASE 97 U/L (23-300); POTASSIUM 4.1 mmol/L (3.4-5.0); SODIUM 138 mmol/L (137-145); TOTAL PROTEIN 8.8 gm/dL (6.4-8.2)
[2018-05-18] MEDS ORDERED: ADIPEX-P37.5 MG PO (18:20)
[2018-05-18 18:29] LABS: COLLECTION METHOD CLEAN CATCH
[2018-05-18 18:35] LABS: MUCOUS Present /lpf; PH 5 (5-8); SQUAMOUS EPITHELIAL 0-2 /hpf; URINE APPEARANCE Clear; URINE BACTERIA None Seen /hpf; URINE BILIRUBIN Negative (NEGATIVE); URINE BLOOD Negative (NEGATIVE); URINE COLOR Yellow; URINE GLUCOSE Negative (NEGATIVE); URINE KETONE Negative (NEGATIVE); URINE LEUKOCYTE ESTERASE Negative (NEGATIVE); URINE NITRATE Negative (NEGATIVE); URINE PROTEIN(semi-quant) Negative (NEGATIVE); URINE RBC 0-2 /hpf; URINE UROBILINOGEN Negative (NEGATIVE)
[2018-05-18 21:26] VITALS: BP 128/83; PULSE 85
== END 2018-05-18 21:32 | disposition home or self-care (01) ==
LOC: COL.ER 17:16
PROVIDERS: Nurse Practitioner
DX: R10.2 Pelvic and perineal pain (principal); F31.9 Bipolar disorder, unspecified; F41.9 Anxiety disorder, unspecified; J45.909 Unspecified asthma, uncomplicated; Z87.42 Personal history of other diseases of the female genital tract
CPT/HCPCS: J1170; J1885; J2405; J2550; J7030

== ENCOUNTER 2018-09-11 13:42 | Emergency (ER) | payer MEDICAID ==
[~2018-09-11] VITALS: Ht 157.5 cm; Wt 90.0 kg
[~2018-09-11 13:42] MED LIST changes: +ADIPEX-P37.5 MG PO; +MINIPRESS 5M5 MG/CAP PO; +SPRINTEC 35 MCG1 TAB PO
[2018-09-11 15:02] VITALS: BP 129/78; PULSE 94; TEMP 98.4
== END 2018-09-11 15:07 | disposition home or self-care (01) ==
LOC: COL.ER 13:42
DX: S63.91XA Sprain of unspecified part of right wrist and hand, initial encounter (principal); S63.501A Unspecified sprain of right wrist, initial encounter; Z88.0 Allergy status to penicillin; Z88.1 Allergy status to other antibiotic agents; W10.9XXA Fall (on) (from) unspecified stairs and steps, initial encounter

== ENCOUNTER 2018-10-27 20:09 | Emergency (ER) | payer MEDICAID ==
[~2018-10-27] VITALS: Ht 157.5 cm; Wt 86.4 kg
[2018-10-27 20:14] VITALS: TEMP 98.1
[2018-10-27] MEDS ORDERED: PREDNISONE20 MG PO (22:10)
[2018-10-27 22:17] VITALS: BP 124/84; PULSE 84
== END 2018-10-27 22:24 | disposition home or self-care (01) ==
LOC: COL.ER 20:09
DX: T78.2XXA Anaphylactic shock, unspecified, initial encounter (principal); J45.909 Unspecified asthma, uncomplicated; F41.9 Anxiety disorder, unspecified; F31.9 Bipolar disorder, unspecified
CPT/HCPCS: J0171; J1170; J1200; J2930

== ENCOUNTER 2018-12-17 18:38 | Emergency (ER) | payer MEDICAID ==
[~2018-12-17] VITALS: Ht 157.5 cm; Wt 86.4 kg
[2018-12-17] MEDS ORDERED: DOXYCYCLINE 10100 MG PO (20:19)
[2018-12-17 20:21] VITALS: BP 116/86; PULSE 89; TEMP 98.4
== END 2018-12-17 20:25 | disposition home or self-care (01) ==
LOC: COL.ER 18:38
DX: L02.425 Furuncle of right lower limb (principal); T50.905A Adverse effect of unspecified drugs, medicaments and biological substances, initial encounter
CPT/HCPCS: J7512

== ENCOUNTER 2019-02-19 18:24 | Emergency (ER) | payer MEDICAID ==
[~2019-02-19] VITALS: Ht 157.5 cm; Wt 86.4 kg
[2019-02-19 18:36] VITALS: TEMP 99
[2019-02-19 19:05] LABS: COLLECTION METHOD CLEAN CATCH
[2019-02-19 19:11] LABS: MUCOUS Present /lpf; PH 5 (5-8); URINE APPEARANCE Clear; URINE BACTERIA Rare /hpf; URINE BILIRUBIN Negative (NEGATIVE); URINE BLOOD Negative (NEGATIVE); URINE COLOR Yellow; URINE GLUCOSE Negative (NEGATIVE); URINE KETONE Negative (NEGATIVE); URINE LEUKOCYTE ESTERASE Negative (NEGATIVE); URINE NITRATE Negative (NEGATIVE); URINE PROTEIN(semi-quant) Negative (NEGATIVE); URINE RBC 0-2 /hpf; URINE UROBILINOGEN Negative (NEGATIVE)
[2019-02-19 19:17] LABS: BASO % 0.7 % (0.0-2.0); EOS # 0.1 (0.0-0.7); GRAN # 2.6 (1.4-6.5); GRAN % 58.5 % (42.2-75.2); HEMOGLOBIN 12.1 g/dl (12.5-16.0); LYMPH # 1.4 (1.2-3.4); LYMPH % 31.2 % (20.0-51.0); MEAN CELL VOLUME 86 fl (80.0-100.0); MEAN CORPUSCULAR HEMOGLOBIN 28 pg (27.0-31.0); MEAN CORPUSCULAR HGB CONC 33 g/dl (33.0-37.0); MEAN PLATELET VOLUME 10.5 fl (7.4-10.4); MONO # 0.3 (0.1-0.6); MONO % 6.4 % (1.7-9.3); PLATELET COUNT 263 K/mm3 (130-400); RED BLOOD COUNT 4.29 M/mm3 (4.10-5.30); REDCELL DISTRIBUTION WIDTH-CV 13.1 % (11.5-14.5)
[2019-02-19 19:31] LABS: ALBUMIN 4.4 gm/dL (3.5-5.0); BILIRUBIN,TOTAL 0.7 mg/dL (0.0-1.0); CALCIUM 9.3 mg/dL (8.4-10.2); CREATININE, serum 0.83 (0.52-1.25); POTASSIUM 4.5 mmol/L (3.4-5.0); TOTAL PROTEIN 8.3 gm/dL (6.4-8.2)
[2019-02-19 19:38] LABS: HEMATOCRIT 36.8 % (37.0-47.0)
[2019-02-19] MEDS ORDERED: PHENERGAN 25 TA25 MG PO (20:29)
[2019-02-19] MEDS ORDERED: NEXIUM 20MG20 MG PO (20:29)
[2019-02-19 21:49] VITALS: BP 144/99; PULSE 89
== END 2019-02-19 21:49 | disposition home or self-care (01) ==
LOC: COL.ER 18:24
PROVIDERS: Emergency Medicine
DX: R10.13 Epigastric pain (principal)
CPT/HCPCS: C9113; J1170; J2550; J7030

== ENCOUNTER 2019-03-12 11:02 | Emergency (ER) | payer MEDICAID ==
[~2019-03-12] VITALS: Ht 157.5 cm; Wt 90.9 kg
[~2019-03-12 11:02] MED LIST changes: +NEXIUM 20MG20 MG PO
[2019-03-12 11:16] VITALS: BP 141/100; PULSE 98; TEMP 98
[2019-03-12 12:08] LABS: COLLECTION METHOD CLEAN CATCH
[2019-03-12 12:14] LABS: PH 5 (5-8); SQUAMOUS EPITHELIAL None Seen /hpf; URINE APPEARANCE Clear; URINE BACTERIA None Seen /hpf; URINE BILIRUBIN Negative (NEGATIVE); URINE BLOOD Negative (NEGATIVE); URINE COLOR Yellow; URINE GLUCOSE Negative (NEGATIVE); URINE KETONE Negative (NEGATIVE); URINE LEUKOCYTE ESTERASE Negative (NEGATIVE); URINE NITRATE Negative (NEGATIVE); URINE PROTEIN(semi-quant) Negative (NEGATIVE); URINE RBC 0-2 /hpf; URINE UROBILINOGEN Negative (NEGATIVE)
== END 2019-03-12 13:35 | disposition home or self-care (01) ==
LOC: COL.ER 11:02
PROVIDERS: Physician Assistant
DX: J06.9 Acute upper respiratory infection, unspecified (principal); Z88.0 Allergy status to penicillin

== ENCOUNTER 2019-10-04 17:08 | Emergency (ER) | payer MEDICAID ==
[~2019-10-04] VITALS: Ht 157.5 cm; Wt 89.5 kg
[2019-10-04 17:14] VITALS: TEMP 98.7
[2019-10-04 18:41] LABS: BASO # 0.1 (0.0-0.2); BASO % 1.1 % (0.0-2.0); EOS # 0.2 (0.0-0.7); EOS % 3.3 % (0-4.0); GRAN # 3.6 (1.4-6.5); GRAN % 57.2 % (42.2-75.2); LYMPH # 2.1 (1.2-3.4); LYMPH % 33.3 % (20.0-51.0); MEAN CELL VOLUME 85 fl (80.0-100.0); MEAN CORPUSCULAR HEMOGLOBIN 28 pg (27.0-31.0); MEAN CORPUSCULAR HGB CONC 33 g/dl (33.0-37.0); MEAN PLATELET VOLUME 9.9 fl (7.4-10.4); MONO # 0.3 (0.1-0.6); MONO % 4.9 % (1.7-9.3); PLATELET COUNT 314 K/mm3 (130-400); REDCELL DISTRIBUTION WIDTH-CV 13.1 % (11.5-14.5)
[2019-10-04 18:42] LABS: HEMATOCRIT 36.4 % (37.0-47.0)
[2019-10-04 18:46] LABS: ALANINE AMINOTRANSFERASE 13 U/L (4-34); ALBUMIN 4.3 gm/dL (3.5-5.0); ALKALINE PHOSPHATASE 74 U/L (50-136); ANION GAP 9 mmol/L (7-16); AST,SGOT 20 U/L (15-37); BILIRUBIN,TOTAL 0.7 mg/dL (0.0-1.0); BLOOD UREA NITROGEN 9 mg/dL (7-17); CALCIUM 9.4 mg/dL (8.4-10.2); CARBON DIOXIDE 26 mmol/L (22-30); CHLORIDE 102 mmol/L (98-107); CREATININE, serum 0.84 (0.52-1.25); GLUCOSE 100 mg/dL (74-106); LIPASE 101 U/L (23-300); POTASSIUM 3.8 mmol/L (3.4-5.0); SODIUM 137 mmol/L (137-145); TOTAL PROTEIN 8.1 gm/dL (6.4-8.2)
[2019-10-04 19:03] LABS: TROPONIN-I < 0.012 ng/mL (0.000-0.035)
[2019-10-04 19:26] LABS: COLLECTION METHOD CLEAN CATCH
[2019-10-04 20:48] LABS: PH 5 (5-8); URINE APPEARANCE Hazy; URINE BILIRUBIN Negative (NEGATIVE); URINE BLOOD Negative (NEGATIVE); URINE COLOR Yellow; URINE GLUCOSE Negative (NEGATIVE); URINE KETONE Negative (NEGATIVE); URINE LEUKOCYTE ESTERASE Negative (NEGATIVE); URINE NITRATE Negative (NEGATIVE); URINE PROTEIN(semi-quant) 1+ (NEGATIVE); URINE UROBILINOGEN Negative (NEGATIVE)
[2019-10-04 20:49] LABS: MUCOUS Present /lpf; URINE BACTERIA Rare /hpf; URINE RBC 0-2 /hpf
[2019-10-04 21:00] VITALS: BP 134/84; PULSE 82
[2019-10-04] MEDS ORDERED: NORCO 325 MG-51 TAB PO (21:15)
[2019-10-04] MEDS ORDERED: ZOFRAN ODT4 MG PO (21:15)
== END 2019-10-04 21:35 | disposition home or self-care (01) ==
LOC: COL.ER 17:08
PROVIDERS: Nurse Practitioner
DX: R07.9 Chest pain, unspecified (principal); R10.13 Epigastric pain; J45.909 Unspecified asthma, uncomplicated
CPT/HCPCS: J1170; J1885; J2405; J2550; J7030

== ENCOUNTER → 2019-10-18 | Outpatient (CLI) | payer MEDICAID ==
[~2019-10-18] MED LIST changes: +ZOFRAN ODT4 MG PO
== END ==
LOC: COL.RAD
DX: R10.11 Right upper quadrant pain (principal)

== ENCOUNTER → 2019-10-21 | Outpatient (CLI) | payer MEDICAID | LOC: COL.RAD | DX: R10.11 Right upper quadrant pain (principal) | CPT/HCPCS: A9537; J2805 ==

== ENCOUNTER 2019-12-05 16:20 | Emergency (ER) | payer MEDICAID ==
[~2019-12-05] VITALS: Ht 157.5 cm; Wt 86.4 kg
[2019-12-05] MEDS ORDERED: TESSALON P100 MG/CAP PO (17:22)
[2019-12-05 17:37] VITALS: BP 118/64; PULSE 74; TEMP 98.7
== END 2019-12-05 17:38 | disposition home or self-care (01) ==
LOC: COL.ER 16:20
DX: U07.1 COVID-19 (principal); Z88.0 Allergy status to penicillin; Z88.2 Allergy status to sulfonamides; Z88.1 Allergy status to other antibiotic agents; Z88.8 Allergy status to other drugs, medicaments and biological substances; Z79.52 Long term (current) use of systemic steroids

== ENCOUNTER → 2020-05-16 | Emergency (ER) | payer MEDICAID ==
[~2020-05-16] VITALS: Ht 157.5 cm; Wt 90.9 kg
[~2020-05-16] MED LIST changes: +LAMICTAL 100MG100 MG PO; +TESSALON P100 MG/CAP PO
[2020-05-16 22:46] VITALS: BP 142/88; PULSE 111; TEMP 98.8
[2020-05-17 05:10] LABS: STREP SCREEN NEGATIVE
== END ==
LOC: COL.ER 10:43
PROVIDERS: Emergency Medicine
DX: J06.9 Acute upper respiratory infection, unspecified (principal); R51.9 Headache, unspecified; R53.83 Other fatigue; Z88.0 Allergy status to penicillin; Z88.2 Allergy status to sulfonamides; Z88.1 Allergy status to other antibiotic agents; Z88.8 Allergy status to other drugs, medicaments and biological substances; Z79.52 Long term (current) use of systemic steroids

== ENCOUNTER → 2020-05-17 | Emergency (ER) | payer MEDICAID ==
[2020-05-18 00:39] VITALS: BP 131/90; PULSE 85
== END ==
LOC: COL.ER 03:37
DX: R19.7 Diarrhea, unspecified (principal); R11.2 Nausea with vomiting, unspecified; R53.1 Weakness; R53.83 Other fatigue; R05 Cough

== ENCOUNTER 2020-09-17 08:48 | Emergency (ER) | payer MEDICAID ==
[~2020-09-17] VITALS: Ht 157.5 cm; Wt 87.7 kg
[~2020-09-17 08:48] MED LIST changes: -LAMICTAL 100MG100 MG PO
[2020-09-17 09:35] VITALS: BP 135/87; TEMP 98.5
[2020-09-17] MEDS ORDERED: LAMICTAL 100MG100 MG PO (09:37)
[2020-09-17 10:55] VITALS: PULSE 75
== END 2020-09-17 10:55 | disposition home or self-care (01) ==
LOC: COL.ER 08:48
DX: S62.664A Nondisplaced fracture of distal phalanx of right ring finger, initial encounter for closed fracture (principal); F31.9 Bipolar disorder, unspecified; G47.00 Insomnia, unspecified; Z79.899 Other long term (current) drug therapy; W23.0XXA Caught, crushed, jammed, or pinched between moving objects, initial encounter

== ENCOUNTER → 2023-01-08 | Outpatient (RCR) | payer OTHER ==
[~2023-01-08] MED LIST changes: +LAMICTAL 100MG100 MG PO; +LEVAQUIN 750MG750 M1 PO; +ROBAXIN 50500 MG/TAB PO
== END | disposition home or self-care (01) ==
LOC: WSOH
DX: S93.402D Sprain of unspecified ligament of left ankle, subsequent encounter (principal); J45.909 Unspecified asthma, uncomplicated; F41.9 Anxiety disorder, unspecified; F31.9 Bipolar disorder, unspecified; Y99.0 Civilian activity done for income or pay

== ENCOUNTER 2023-02-06 09:45 | Outpatient (RCR) | payer OTHER | END 2023-02-08 | disposition home or self-care (01) | LOC: WSPT → WSOH → WSPT 09:45 | DX: S93.402D Sprain of unspecified ligament of left ankle, subsequent encounter (principal); X58.XXXD Exposure to other specified factors, subsequent encounter | CPT/HCPCS: 24091; A6549 ==

== ENCOUNTER 2023-02-25 14:10 | Outpatient (RCR) | payer OTHER | END 2023-03-11 | disposition home or self-care (01) | LOC: WSOH | DX: S93.402D Sprain of unspecified ligament of left ankle, subsequent encounter (principal); X58.XXXD Exposure to other specified factors, subsequent encounter ==